=== PATIENT | female | born 1955 | race Caucasian/White ===

== ENCOUNTER → 2018-03-12 12:38 | Outpatient (CLI) | payer OTHER, SELFPAY ==
--- NOTE | 2018-03-12 13:01 | MM_ITS ---
MM Dig mamm DX unilat LT CAD COMPARISON: 09/11/2017 INDICATION: Follow-up breast cancer ORDERING PHYSICIAN: Amrik Montilla MD PATIENT AGE: 62 years TECHNIQUE: Standard images performed along with problem-solving views FINDINGS: Postsurgical changes are present along the radial aspect of the left breast with increased density in the surgical bed with surgical clips in that region. There are other scattered surgical clips in the breast as well in the upper outer aspect and 2 within the central aspect. The asymmetric density medially is not significant change compared to 09/11/2017 consistent with postsurgical changes. The density does efface out on what on the MLO view compared to the cc view with some interspersed fat within the area and also somewhat disperses out on the rolled views. No other abnormalities are evident. IMPRESSION: Postsurgical changes left breast. Asymmetric density in the medial aspect is felt to represent surgical scar BI-RADS Category: 2 Benign Finding(s) RECOMMENDED FOLLOW-UP: 6M - 6 MONTH FOLLOW-UP Recommend 6 month follow-up of both breasts to put patient back on schedule (A letter has been sent to the patient regarding results of the study.)
== END ==
PROVIDERS: Family Provider Family Medicine; PCP Family Medicine; Visit Provider Surgery
DX: C50.919 Malignant neoplasm of unspecified site of unspecified female breast (principal)
CPT/HCPCS: 77065

== ENCOUNTER → 2018-09-04 08:28 | Outpatient (CLI) | payer BC, SELFPAY ==
--- NOTE | 2018-09-04 08:30 | MM_ITS ---
MM Dig screening mamm BI w/CAD ORDERING PHYSICIAN : Amrik Montilla MD PATIENT AGE: 63 years GENDER: Female COMPARISON: No August 2017 bilateral mammogram along with subsequent February 2018. MR breast from April 2016 is also available in the PACS from outside study There is also a: Sepsis study [facility] mobile from 02/04/2015 INDICATION: ITS.REASON: screening. No hormones. No new complaints. Left lumpectomy 2016 with chemotherapy & radiation. TECHNIQUE: Standard CC and MLO images were obtained. R2 CAD reviewed. FINDINGS: RIGHT BREAST. No significant new findings follow-up in one year on right. Lower density breast with generalized fatty replacement Small grouping of calcifications upper-outer quadrant right breast is unchanged since 2017. Benign appearance and include benign skin calcifications as well as others small benign-appearing punctate calcifications.-These can be be followed. :Scant glandular tissue towards the upper outer quadrant is similar to studies dating back to 2014 LEFT BREAST:Postlumpectomy changes again see that the medial left breast. No new findings here. Numerous vascular clips are seen here. Along with clips at the left axilla from axillary dissection. . The diffuse skin thickening from previous radiation again evident but has shown slight regression since February Also note 3 other percutaneous biopsy metallic markers.: One at the superior medial breast which likely reflected a MR directed mammogram As does the second and third metallic marker clips seen at the central left breast IMPRESSION: ...... 1. No significant new findings either breast. Follow-up in one year recommended 2. Left breast Post lumpectomy changes with axillary dissection.. . Otherwise note 3 additional metallic markers from 3 prior percutaneous biopsy elsewhere on left left breast. 3. Right breast. No significant new findings.. Stable benign-appearing calcifications 4.Follow-up not over one year recommended bilateral BI-RADS Category: 2 Benign Finding(s) RECOMMENDED FOLLOW-UP: 1YR 1 YEAR FOLLOW-UP (A letter has been sent to the patient regarding results of the study.)
== END ==
PROVIDERS: PCP Family Medicine; Visit Provider Surgery
DX: Z12.31 Encounter for screening mammogram for malignant neoplasm of breast (principal)
CPT/HCPCS: 77067

== ENCOUNTER → 2019-09-06 08:27 | Outpatient (CLI) | payer BC, SELFPAY ==
--- NOTE | 2019-09-06 08:30 | MM_ITS ---
PROCEDURE: MM DIG SCREENING MAMM BI W/CAD CLINICAL INDICATION: breast cancer screening There is a history of previous lumpectomy left breast for malignancy with follow-up radiation therapy and chemotherapy. . COMPARISON: DMDB DIG MAMM-DX LEA W/CAD from 09/11/2017 DXLT MM Dig mamm DX unilat LT CAD from 03/12/2018 [facility] MM Dig screening mamm BI w/CAD from 09/04/2018 TECHNIQUE: Standard CC and MLO images were obtained. R2 CAD reviewed. FINDINGS: Scattered diffuse fibroglandular densities are seen throughout both breasts. There is minimal postlumpectomy scarring with adjacent surgical clips upper inner quadrant left breast. There is mild generalized skin thickening left breast likely secondary to radiation therapy. There additional biopsy clips in the central portion of the breast not related to the lumpectomy site. There is scattered benign-appearing microcalcifications in each breast. There is no new or suspicious lesion in either breast and no suspicious microcalcifications. IMPRESSION: Fibrofatty parenchyma with postlumpectomy and post radiation changes left breast BI-RAD Category: 2 Benign Finding(s) FOLLOW-UP: 1YR 1 Year Follow-up (A letter has been sent to the patient regarding results of the study.) Dictated by: Dr. Jose Posada MD 09/08/2019 15:[address] Jose Posada MD in [place] 09/08/2019 15:30
== END ==
PROVIDERS: PCP Family Medicine; Visit Provider Surgery
DX: Z12.31 Encounter for screening mammogram for malignant neoplasm of breast (principal)
CPT/HCPCS: 77067

== ENCOUNTER → 2020-03-21 08:13 | Outpatient (CLI) | payer BC, SELFPAY ==
[2020-03-21 11:19] LABS: Alanine Aminotransferase 26 U/L (12-78); Albumin Level 4.2 g/dl (3.5-5.0); Albumin/Globulin Ratio 1.4 (1.1-1.8); Alkaline Phosphatase 133 U/L (38-126); Aspartate Amino Transferase 31 U/L (14-36); Bilirubin,Total 0.6 mg/dl (0.2-1.3); Blood Urea Nitrogen 22 mg/dl (7-17); Calcium 9.7 mg/dl (8.4-10.2); Carbon Dioxide 32 mmol/L (22.0-30.0); Chloride 101 mmol/L (98-107); Chol/HDL Ratio 3.9 (1-3.5); Cholesterol 170 mg/dl (140-200); Estimated Glomerular Filt Rate 101 ml/min (>60); GFR (African American) 122 ML/MIN (>60); Glucose 116 mg/dl (74-100); HDL Cholesterol 44 mg/dl (40-60); Sodium 137 mmol/L (136-145); Total Protein,Serum 7.2 g/dl (6.3-8.2); Triglycerides 142 mg/dl (30-150); VLDL Cholesterol 28 mg/dL (0-40)
[2020-03-21 11:30] LABS: Direct LDL Cholesterol 118.37 mg/dL (100-129)
[2020-03-21 11:51] LABS: Thyroid Stimulating Hormone 1.08 uIU/mL (0.465-4.68)
== END ==
PROVIDERS: Visit Provider Physician Assistant
DX: I10 Essential (primary) hypertension (principal); Z13.29 Encounter for screening for other suspected endocrine disorder; Z13.220 Encounter for screening for lipoid disorders
CPT/HCPCS: 36415; 80053; 80061; 84443

== ENCOUNTER → 2020-09-11 08:24 | Outpatient (CLI) | payer BC, SELFPAY ==
--- NOTE | 2020-09-11 08:27 | MM_ITS ---
PROCEDURE: MM DIG SCREENING MAMM BI W/CAD Referring Doctor: Anna Pennington Patient Age:65Y CLINICAL INDICATION: SCREENING Lumpectomy upper inner quadrant left breast, with radiation. Other previous stereotactic biopsies elsewhere as well. No hormones, no new complaints. Noncontributory family history COMPARISON: MG DMNLL DIG MAMM-NEEDLE LOC-LT from 07/27/2016 MG DMDB DIG MAMM-DX LEA W/CAD from 09/11/2017 MG DXLT MM Dig mamm DX unilat LT CAD from 03/12/2018 MG [facility] MM Dig screening mamm BI w/CAD from 09/04/2018 MG MM DIG SCREENING MAMM BI W/CAD from 09/06/2019 TECHNIQUE: Standard CC and MLO images were obtained. R2 CAD reviewed. Bilateral digital breast tomosynthesis included. Additional nipple profile MLO view right breast included FINDINGS: Minimal residual fibroglandular elements bilateral, with overall lower density breast. Moderate fatty replacement throughout. No new dominant or suspicious mass Left breast: No new areas of concern Stable appearance to the prior lumpectomy deep medial left breast. Mild diffuse skin thickening noted the from previous radiation-stable A few additional metallic clips and markers elsewhere in the breast from previous percutaneous biopsies appear unchanged the. . Some small groupings of tiny dense punctate calcifications a seen left breast appear stable and can be followed. . Right breast: No new areas significant concern No mass lesion. Stable architecture . Small scattered round calcifications with some loose groupings of a few small dense punctate calcifications a seen upper-outer quadrant right--no significant change since previous studies and can be followed.. Many of these are likely skin calcifications a . Bilateral follow-up 1 year recommended IMPRESSION: No new areas of concern either breast stable observations bilaterally Recommended Bilateral follow-up 1 year Left breast lumpectomy site deep medial left breast again noted and appears stable .. BI-RAD Category: 2 Benign Finding(s) FOLLOW-UP: 1YR 1 Year Follow-up (A letter has been sent to the patient regarding results of the study.) Dictated by: Elan Maldonado MD 09/17/2020 12:43 Elan Maldonado MD in [place] 09/17/2020 12:43
== END ==
PROVIDERS: PCP Family Medicine; Visit Provider Physician Assistant
DX: Z12.31 Encounter for screening mammogram for malignant neoplasm of breast (principal)
CPT/HCPCS: 77063; 77067

== ENCOUNTER → 2021-09-17 08:01 | Outpatient (CLI) | payer BC, MEDICARE, SELFPAY ==
--- NOTE | 2021-09-17 08:05 | MM_ITS ---
PROCEDURE INFORMATION: Exam: MG Bilateral Screening 3D Mammography Exam date and time: 09/17/2021 8:05 AM Age: 66 years old Clinical indication: Encounter for screening mammogram for malignant neoplasm of breast. Personal history of left breast cancer TECHNIQUE: Imaging protocol: Bilateral screening tomosynthesis and 2D mammography including computer-aided detection (CAD) when performed. COMPARISON: 1. MG MM DIG SCREENING MAMM BI W/CAD 09/11/2020 8:30 AM 2. MG MM DIG SCREENING MAMM BI W/CAD 09/06/2019 8:40 AM FINDINGS: MAMMOGRAPHY: Breast composition: The breast tissue is composed of scattered areas of fibroglandular density. Mass: None. Architectural distortion: Stable post operative architectural distortion in the left inner quadrant due to prior lumpectomy for carcinoma. Calcifications: No suspicious calcifications. Asymmetric density: None. Skin thickening: Mild diffuse skin thickening on left due to radiation change Axillary adenopathy: None. IMPRESSION: No mammographic evidence of malignancy. Annual screening is recommended unless otherwise clinically indicated. ASSESSMENT: BI-RADS Category 2: Benign
== END ==
PROVIDERS: PCP Family Medicine; Visit Provider Physician Assistant
DX: Z12.31 Encounter for screening mammogram for malignant neoplasm of breast (principal)
CPT/HCPCS: 77063; 77067

== ENCOUNTER → 2022-09-23 08:14 | Outpatient (CLI) | payer BC, SELFPAY ==
--- NOTE | 2022-09-23 08:28 | MM_ITS ---
PROCEDURE INFORMATION: Exam: MG Bilateral Screening 3D Mammography Exam date and time: 09/23/2022 8:19 AM Age: 67 years old Clinical indication: Screening. Personal history of left breast cancer, status post left lumpectomy and radiation. TECHNIQUE: Imaging protocol: Bilateral Screening tomosynthesis and 2D mammography including computer-aided detection (CAD) when performed. COMPARISON: 1. MG MM DIG SCREENING MAMM BI W/CAD 09/17/2021 8:09 AM 2. MG MM DIG SCREENING MAMM BI W/CAD 09/11/2020 8:30 AM 3. MG MM DIG SCREENING MAMM BI W/CAD 09/06/2019 8:40 AM 4. MG [facility] MM Dig screening mamm BI w/CAD 09/04/2018 8:50 AM FINDINGS: MAMMOGRAPHY: Breast composition: There are scattered areas of fibroglandular density. Mass: None. Architectural distortion: The stable postoperative architectural distortion in the left upper inner quadrant with surgical clips. Calcifications: No suspicious calcifications. Asymmetric density: None. Skin thickening: Stable mild left skin thickening. Axillary adenopathy: None. Surgical clips in the left axilla. Other: Left biopsy clips. IMPRESSION: No mammographic evidence of malignancy. Annual screening is recommended unless otherwise clinically indicated. ASSESSMENT: BI-RADS Category 2: Benign
== END ==
PROVIDERS: PCP Family Medicine; Visit Provider Physician Assistant
DX: Z12.31 Encounter for screening mammogram for malignant neoplasm of breast (principal)
CPT/HCPCS: 77063; 77067

== ENCOUNTER → 2023-02-03 12:36 | Outpatient (CLI) | payer BC, SELFPAY | PROVIDERS: PCP Family Medicine; Visit Provider Physician Assistant | DX: R01.1 Cardiac murmur, unspecified (principal) | CPT/HCPCS: 93306 ==

== ENCOUNTER → 2023-08-25 09:58 | Outpatient (CLI) | payer MEDICARE, SELFPAY ==
--- NOTE | 2023-08-25 10:10 | XR_ITS ---
FINAL REPORT CLINICAL HISTORY: FALL in April 2023 radiates down right leg FINDINGS: Right hip Three views were obtained. There is no acute fracture or dislocation. There are mild degenerative changes. No soft tissue abnormality is identified. IMPRESSION: No acute process. Reviewed, Interpreted and Dictated by Amrik Harkins III, MD Transcribed by Mayela Harmon Authenticated and [facility]
== END ==
PROVIDERS: PCP Physician Assistant; Visit Provider Physician Assistant
DX: M25.551 Pain in right hip (principal)
CPT/HCPCS: 73502

== ENCOUNTER → 2023-09-25 07:46 | Outpatient (CLI) | payer MEDICARE, SELFPAY ==
--- NOTE | 2023-09-25 07:49 | MM_ITS ---
PROCEDURE INFORMATION: Exam: MG Bilateral Screening 3D Mammography Exam date and time: 09/25/2023 7:44 AM Age: 68 years old Clinical indication: Screening. Personal history of left breast cancer, status post left lumpectomy and radiation. TECHNIQUE: Imaging protocol: Bilateral Screening tomosynthesis and 2D mammography including computer-aided detection (CAD) when performed. COMPARISON: 1. MG MM DIG SCREENING MAMM BI W/CAD 09/23/2022 8:19 AM 2. MG MM DIG SCREENING MAMM BI W/CAD 09/17/2021 8:09 AM 3. MG MM DIG SCREENING MAMM BI W/CAD 09/11/2020 8:30 AM 4. MG MM DIG SCREENING MAMM BI W/CAD 09/06/2019 8:40 AM FINDINGS: MAMMOGRAPHY: Breast composition: There are scattered areas of fibroglandular density. Mass: None. Architectural distortion: Stable postoperative architectural distortion in the left upper inner quadrant with surgical clips. Calcifications: No suspicious calcifications. Asymmetric density: None. Skin thickening: Stable mild left skin thickening. Axillary adenopathy: None. IMPRESSION: No mammographic evidence of malignancy. Annual screening is recommended unless otherwise clinically indicated. ASSESSMENT: BI-RADS Category 2: Benign
== END ==
PROVIDERS: PCP Physician Assistant; Visit Provider Physician Assistant
DX: Z12.31 Encounter for screening mammogram for malignant neoplasm of breast (principal)
CPT/HCPCS: 77063; 77067

== ENCOUNTER 2024-09-27 08:09 | Outpatient (CLI) | payer MEDICARE, SELFPAY ==
--- NOTE | 2024-09-27 08:19 | XR_ITS ---
FINAL REPORT TECHNIQUE: Bone densitometry calculations of the lumbar spine and left hip were obtained. CLINICAL HISTORY: SCREENING COMPARISON: None FINDINGS: Using L1-4, the bone mineral density of the spine is 1.129 g/cm2, corresponding to T-score of 0.7 and a Z score of 2.7. This is within the range of normal limits. Using the left hip, the bone mineral density of the total hip is 0.702 g/cm2, corresponding to a T-score of -2.0 and a Z-score of -0.6. This is within the range of osteopenia. Using the right hip, the bone mineral density of the femoral neck is 0.716 g/cm2, corresponding to a T-score of -1.2 and a Z-score of 0.5. This is within the range of osteopenia. FRAX 10 year fracture risk is 0.7% for a hip fracture and 7.8% for a major osteoporotic fracture. NOTE: T-score: Standard deviation compared with peak bone mass of young adult mean. *Following the recommendations of the International Society of Bone densitometry, classification of hip BMD is based on the lower of two T-scores; total hip or femoral neck. IMPRESSION: 1. Bone mineral density of the lumbar spine within the range of normal limits. 2. Bone mineral density of the bilateral hips within the range of osteopenia. Reviewed, Interpreted and Dictated by Yulisa Parnell MD Transcribed by Yaneli Alexander Authenticated and [facility]
--- NOTE | 2024-09-27 08:19 | MM_ITS ---
PROCEDURE INFORMATION: Exam: MG Bilateral Screening 3D Mammography Exam date and time: 09/27/2024 8:17 AM Age: 69 years old Clinical indication: Screening. Personal history left breast cancer, status post lumpectomy and radiation in 2016. TECHNIQUE: Imaging protocol: Bilateral Screening tomosynthesis and 2D mammography including computer-aided detection (CAD) when performed. COMPARISON: 1. MG MM DIG SCREENING MAMM BI W/CAD 09/25/2023 7:44 AM 2. MG MM DIG SCREENING MAMM BI W/CAD 09/23/2022 8:19 AM 3. MG MM DIG SCREENING MAMM BI W/CAD 09/17/2021 8:09 AM 4. MG MM DIG SCREENING MAMM BI W/CAD 09/11/2020 8:30 AM FINDINGS: MAMMOGRAPHY: Breast composition: There are scattered areas of fibroglandular density. Mass: None. Architectural distortion: Stable left lumpectomy architectural distortion and surgical clips. Calcifications: No suspicious calcifications. Asymmetric density: None. Skin thickening: Stable left skin thickening. Axillary adenopathy: None. Surgical clips in the left axilla. IMPRESSION: No mammographic evidence of malignancy. Annual screening is recommended unless otherwise clinically indicated. ASSESSMENT: BI-RADS Category 2: Benign.
== END 2024-09-27 23:59 | disposition home or self-care (01) ==
LOC: RAD 08:13
PROVIDERS: PCP Physician Assistant; Visit Provider Physician Assistant
DX: Z12.31 Encounter for screening mammogram for malignant neoplasm of breast (principal); Z13.820 Encounter for screening for osteoporosis
CPT/HCPCS: 77063; 77067; 77080

== ENCOUNTER 2025-10-13 07:53 | Outpatient (CLI) | payer MEDICARE, SELFPAY ==
--- OUTSIDE RECORDS SUMMARY | 2025-01-30 04:45 | XMS_ITS ---
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 Name Role Phone Ho Thao Primary Care Provider [phone] Anna Pennington Unavailable [phone] Allergies Allergen (clinical drug ingredient) Drug/Non Drug Allergy documented on EMR Reaction Allergy Type Onset Date Status EPINEPHrine Unknown Drug Allergy Activ e acetaminophen / hydrocodone HYDROcodone-Acetamino phen Unknown Drug Allergy Active furosemide Lasix Unknown Drug Allergy Active Results Component Value Reference Range Notes CBC Venipuncture (in house) Reviewed date:01/30/2025 03:15:36 PM Interpretation: Performing Lab: Notes/Report: wbc 7.4 3.5 - 10 lymph 33.2 15 - 50 mid 5.9 2 - 15 gran 60.9 35 - 80 rbc 4.94 3.5 - 5.5 hgb 14.4 11.5 - 16.5 hct 42.4q 35 - 55 mcv 85.8 75 - 100 mch 29.2 25 - 35 mchc 34.0 31 - 38 platlet 241 100 - 400 Cologuard Reviewed date:03/14/2025 09:24:40 AM Interpretation:Negative Performing Lab: Notes/Report: Negative Cologuard Reviewed date:03/14/2025 09:24:40 AM Interpretation:Negative Performing Lab: Notes/Report: Negative Cologuard Reviewed date:03/14/2025 09:24:40 AM Interpretation:Negative Performing Lab: Notes/Report: Negative P-Comprehensive Metabolic Pa rocio (CMP) Reviewed date:02/06/2025 02:27:30 PM Interpretation:Glu 144, Alk Phos 127 Performing Lab: Notes/Report: CLIA: [id number] Rolando Mao MD, Poker Machine Attendant [address] [place] [address] , [place] [address] Test performed by [facility] Sodium 141 135-145 mmol/L Potassium 4.0 3.5-5.3 mmol/L Chloride 102 97-108 mmol/L CO2 29 22-32 mmol/L Glucose 144 65-99 mg/dL BUN 21 8-23 mg/dL Creatinine 0.88 0.50-1.00 mg/dL Calcium 9.4 8.6-10.4 mg/dL eGFR by Creatinine 71 >59 mL/min/1.73m2 Protein 6.9 6.0-8.3 g/dL Albumin 4.3 3.5-5.3 g/dL Alkaline Phosphatase 127 35-121 IU/L ALT (SGPT) 25 <5-47 IU/L AST (SGOT) 21 <5-40 IU/L Bilirubin, Total 0.5 <0.2-1.2 mg/dL A/G Ratio 1.7 1.1-2.5 P-Hemoglobin A1C Reviewed date:02/06/2025 02:27:30 PM Interpretation:7.4 Performing Lab: Notes/Report: Test performed by [facility] [address] [place] [address] [place] [address] Rolando Mao MD, Poker Machine Attendant CLIA: [id number] Hemoglobin A1C 7.4 <5.7 % The following HbA1c ranges recommended by the [place] Diabetes Association (ADA) may be used as an aid in the diagnosis of diabetes mellitus. HbA1c Suggested Diagnosis >=6.5% Diabetic 5.7% - 6.4% Pre-Diabetic <5.7% Non-Diabetic P-Lipid Panel Reviewed date:02/06/2025 02:27:30 PM Interpretation:Trigs 157, HDL 36, Chol/HDL 5.08, non-HDL 147 Performing Lab: Notes/Report: Test performed by [facility] [address] [place] [address] [place] [address] Rolando Mao MD, Poker Machine Attendant CLIA: [id number] Cholesterol 183 <200 mg/dL Triglycerides 157 <150 mg/dL HDL Cholesterol 36 >39 mg/dL Cholesterol / HDL Ratio 5.08 0.00-4.44 Ratio Non-HDL Cholesterol 147 <130 mg/dL LDL Cholesterol (Calculation) 116 <130 mg/dL LDL Cholesterol Levels* Less than 100 mg/dL Optimal 100 to 129 mg/dL Near Optimal/ Above Optimal 130 to 159 mg/dL Borderline High 160 to 189 mg/dL High 190 mg/dL and above Very High * Categories as recommended by the 2004 ATPIII guidelines LDL/HDL Ratio 3.2 <3.3 Ratio LDL Cholesterol Patient History Test Date: 12/20/2023 LDL Results: 111 Units: mg/dL % Change: - Test Date: 04/11/2024 LDL Results: 100 Units: mg/dL % Change: -9% Test Date: 01/30/2025 LDL Results: 116 Units: mg/dL % Change: +16% P-TSH reflex to FT4 Reviewed date:02/06/2025 02:27:30 PM Interpretation:Normal Performing Lab: Notes/Report: Test performed by [facility] [address] [place] [address] , [place] [address] Rolando Mao MD, Poker Machine Attendant CLIA: [id number] TSH reflex to FT4 1.61 0.43-5.25 mU/L Estimated Average Glucose Reviewed date:02/06/2025 02:27:30 PM Interpretation:Normal Performing Lab: Notes/Report: Test performed by [facility] [address] [place] [address] , [place] [address] Rolando Mao MD, Poker Machine Attendant CLIA: [id number] Estimated Average Glucose (eAG) 166 Estimated Average Glucose (eAG) is calculated using the equation eAG = (28.7 x HbA1c) - 46.7 based on the guidelines established by the ADA. If the patient has certain diseases including kidney disease, sickle cell anemia, thalassemia, or is taking medications such as dapsone, erythropoietin, or iron, eAG should not be evaluated. REASON FOR VISIT ckup w/ refills and Annual Wellness Visit Medications Medication SIG (Take, Route, Frequency, Duration) Notes Start Date End Date Status Vitamin E 1000 UNIT 1 cap(s) orally once a day Not-Taking Ciclopirox 8 % 1 joy applied topically once a day at night 02/02/2023 Not-Taking Medrol 4 MG as directed orally daily; Duration: 6 days 12/20/2023 Not-Taking Meloxicam 15 MG take 1 tablet by mouth once daily Orally once daily; Duration: 90 days Active Triamterene-HCTZ 37.5-25 MG 1 tab orally daily; Duration: 90 days Pt Needs Appt Active Methocarbamol 750 MG 1 tablet Orally three times a day as needed 12/20/2023 Not-Taking Glucosamine Chondroitin MSM DIRECTED *Please review and pick correct strength-formulat ion from [employer] options. If intended option is not shown, discontinue and re-order from Quick Search* Active ZyrTEC Allergy 10 MG 1 tab(s) orally once a day Active Calcium-Vitamin D 600 MG-800 INTL UNITS 1 TAB(S) ORALLY 2 TIMES A DAY *Please review and pick correct strength-formulat ion from [employer] options. If intended option is not shown, discontinue and re-order from Quick Search* Active Metoprolol Succinate ER 25 MG take 1 tablet by mouth once daily Orally Once a day; Duration: 90 days Active Cyclobenzaprine HCl 10 MG 1 tab(s) orally three times a day as needed 04/08/2015 Not-Taking Letrozole 2.5 MG 1 tab(s) orally once a day; Duration: 30 day(s) Not-Taking Immunizations Vaccine Route Administration Date Status Comme nts Prevnar (PCV20) IM Intramuscular 01/30/2025 Administered Problems Problem Type SNOMED Code ICD Code Onset Dates Problem Status W/U Status Risk Notes Problem Personal history of primary malignant neoplasm of breast (280589098) History of invasive ductal carcinoma of breast (Z85.3) Active confirmed Problem Obese class II (0591892781591 05) BMI 39.0-39.9,adul t (Z68.39) Active confirmed Vital Signs Blood pressure systolic 152 mm Hg 01/31/20 25 Blood pressure diastolic 92 mm Hg 025 Heart Rate 92 /min 01/30/2025 Height 66 in 01/30/2025 Weight 245.6 lbs 01/30/2025 BMI 39.64 kg/m2 01/30/2025 Encounters Encounter [facility] Date [facility] [address] [facility] [address] [id number] 01/30/2025 Anna Pennington Adult general medica l examination Z00.00 ; Essential hypertension I10 ; Impaired fasting glucose R73.01 ; Mixed hyperlipidemia E78.2 ; Arthritis M19.90 ; Colon cancer screening Z12.11 ; History of invasive ductal carcinoma of breast Z85.3 ; Lymphedema I89.0 ; Osteopenia of right hip M85.851 ; Osteopenia of left hip M85.852 and BMI 39.0-39.9,adult Z68.39 Assessments Encounter Date Diagnosis (ICD Code) Assessment Notes Treatment Notes Treatment Clinical Notes Section Notes 01/30/2025 Adult general medical examination (ICD-10 - Z00.00) Patient instructed to return to office Annually for Annual Wellness Visits to include annual screenings of Pain assessment, Functional Ability assessment, Cognitive Ability assessment, Fall Risk assessment, Depression screening and Bladder control screening. 01/30/2025 Essential hypertension (ICD-10 - I10) BP is much better. Will continue current medication. 01/30/2025 Impaired fasting glucose (ICD-10 - R73.01) 01/30/2025 Mixed hyperlipidemia (ICD-10 - E78.2) 01/30/2025 Arthritis (ICD-10 - M19.90) 01/30/2025 Colon cancer screening (ICD-10 - Z12.11) 01/30/2025 History of invasive ductal carcinoma of breast (ICD-10 - Z85.3) 01/30/2025 Lymphedema (ICD-10 - I89.0) 01/30/2025 Osteopenia of right hip (ICD-10 - M85.851) 01/30/2025 Osteopenia of left hip (ICD-10 - M85.852) 01/30/2025 BMI 39.0-39.9,adult (ICD-10 - Z68.39) Plan Of Treatment Medication Medication Name Sig Start Date Stop Date Notes Meloxicam 15 MG take 1 tablet by once daily Orally once daily; Duration: 90 days Triamterene-HCTZ 37.5-25 MG 1 tab orally daily; Duration: 90 days Pt Needs Appt Metoprolol Succinate ER 25 MG take 1 tablet by mouth once daily Orally Once a day; Duration: 90 days Treatment Notes Assessment Notes Adult general medical examination Patien t instructed to return to office Annually for Annual Wellness Visits to include annual screenings of Pain assessment, Functional Ability assessment, Cognitive Ability assessment, Fall Risk assessment, Depression screening and Bladder control screening. Essential hypertension BP is much better . Will continue current medication. Next Appt Details Follow Up: As directed by MD , Reason: Progress Notes * Nolan BOBOB:1955 (70 yo F)Acc No.[id number]:01/30/2025 Annual Wellness Visit Patient: Ap SAYRARaudelKaila Provider: CRISTINA Barlow :1955 A ge:69 Y S ex:Female Date:01/30/2025 Address: [id number] Pcp:Ho Thao Subjective: * Chief Complaints: * 1 . ckup w/ refills and Annual Wellness Visit. * HPI: H PI: Patient is here today for a check up with refills , a Medicare Annual Wellness Visit. Pt sts she is fasting. * ROS: O PTHALMOLOGY: Negative for d enies issues with vision. * Medical History: A llergies, Cancer of left breast, Mocerna covid pfizer vaccine. 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 * Hospitalization/Major Diagno stic Procedure: s ee above . * Family History: F ather: alive 93 yrs. M other: alive. 2 brother(s) , 1 sister(s) . 1 son(s) , 1 daughter(s) . . * Social History: C URRENT TOBACCO USE S moking Status: Patient does NOT smoke. C affeine: no. Home smoke detector use: yes. Marital Status: . Past smoking status: no. Alcohol: No. Sexually active: yes. * Medications: T aking Calcium-Vitamin D 600 MG-800 INTL UNITS TABLET 1 TAB(S) ORALLY 2 TIMES A DAY , Notes to Pharmacist: *Please review and pick correct strength-formulation from [employer] options. If intended option is not shown, discontinue and re-order from Quick Search*, Taking Glucosamine Chondroitin MSM DIRECTED , Notes to Pharmacist: *Please review and pick correct strength-formulation from [employer] options. If intended option is not shown, discontinue and re-order from Quick Search*, Taking ZyrTEC Allergy 10 MG Tablet 1 tab(s) orally once a day , Taking Meloxicam 15 MG Tablet Take 1 tablet by mouth once daily , Taking Metoprolol Succinate ER 25 MG Tablet Extended Release 24 Hour Take 1 tablet by mouth once daily , Taking Triamterene-HCTZ 37.5-25 MG Tablet 1 tab orally daily , Notes to Pharmacist: Pt Needs Appt, Not-Taking Methocarbamol 750 MG Tablet 1 tablet Orally three times a day as needed , Not-Taking Medrol 4 MG Tablet Therapy Pack as directed orally daily , Not-Taking Vitamin E 1000 UNIT Capsule 1 cap(s) orally once a day , Not-Taking Ciclopirox 8 % Solution 1 joy applied topically once a day at night , Not-Taking Cyclobenzaprine HCl 10 MG Tablet 1 tab(s) orally three times a day as needed , Not-Taking Letrozole 2.5 MG Tablet 1 tab(s) orally once a day , Medication List reviewed and reconciled with the patient * Allergies: E PINEPHrine, HYDROcodone-Acetaminophen, Lasix. Objective: * Vitals: W t: 245.6, Temp: 97.9, BP: 152/92, HR: 92, Nurse: joni, Ht: 66, Repeat BP:128/88, BMI:39.64. * Examination: G eneral Examination: General Appearance: N AD. H EENT: u nremarkable.?Oral cavity: n o lesions, mucosa moist and WNL, no erythema. N inedr: s upple, no lymphadenopathy. C hest: n ormal shape and expansion. H eart: R SR. L ungs: c lear to auscultation. A bdomen: bowel sounds present, soft and nontender, no organomegaly or masses, no guarding or rigidity. N eurologic Exam: I ntact, gait normal. S kin: n ormal, no rash. P eripheral pulses: n ormal (2+) bilaterally. E xtremities: n o leg edema. * Physical Examination: G ENERAL: Pain Assessment: P ain level: 2, on a scale of 0 to 10 (10 being extreme pain). F unctional Status Assessment: P atient response to how often physical health interferes with daily activities: almost never Able to perform ADLs-including meal preparation, grocery shopping, housework, laundry, taking medications, or handling finances. Cognitive Status: Alert and oriented. Ambulation Status: Fully ambulatory. F all Risk Assessment: I ndependant in ambulation, adequate lighting in home. Patient has fallen or had trouble walking within the past 12 months. D epression Screening: D enies depressed mood or anxiety. Describes emotional health as: calm/peaceful. B ladder Control Screening: D enies problems. Assessment: * Assessment: 1. A dult general medical examination - Z00.00 (Primary) 2 . E ssential hypertension - I10 3 . I mpaired fasting glucose - R73.01 4 . M ixed hyperlipidemia - E78.2 5 . A rthritis - M19.90 6 . C olon cancer screening - Z12.11 7 . H istory of invasive ductal carcinoma of breast - Z85.3 8 . L ymphedema - I89.0 9 . O steopenia of right hip - M85.851 1 0. O steopenia of left hip - M85.852 1 1. B OK 39.0-39.9,adult - Z68.39 Plan: * Treatment: 2. E ssential hypertension Refill Metoprolol Succinate ER Tablet Extended Release 24 Hour, 25 MG, take 1 tablet by mouth once daily, Orally, Once a day, 90 days, 90 Tablet, Refills 3; R efill Triamterene-HCTZ Tablet, 37.5-25 MG, 1 tab, orally, daily, 90 days, 90 Tablet, Refills 3, Notes to Pharmacist: Pt Needs Appt. L AB: P-Comprehensive Metabolic Panel (CMP) (Collection Date & Time - 01/30/2025 09:26 AM) G quinton 144, Alk Phos 127 Value Reference Range A /G Ratio 1.7 1.1-2.5 - * A lbumin 4.3 3.5-5.3 - g/dL * A lkaline Phosphatase 127 H 35-121 - IU/L * A LT (SGPT) 25 <5-47 - IU/L * A ST (SGOT) 21 <5-40 - IU/L * B ilirubin, Total 0.5 <0.2-1.2 - mg/dL * B UN 21 8-23 - mg/dL * C alcium 9.4 8.6-10.4 - mg/dL * C hloride 102 97-108 - mmol/L * C O2 29 22-32 - mmol/L * C reatinine 0.88 0.50-1.00 - mg/dL * G lucose 144 H 65-99 - mg/dL * P otassium 4.0 3.5-5.3 - mmol/L * S odium 141 135-145 - mmol/L * P rotein 6.9 6.0-8.3 - g/dL * e GFR by Creatinine 71 >59 - mL/min/1.73m2 * Gretta Engle 02/06/2025 02: 27:13 PM > see phone encounter ?LAB: P-TSH reflex to FT4 (Collection Date & Time - 01/30/2025 09:26 AM)? Normal* Value Reference Range T SH reflex to FT4 1.61 0.43-5.25 - mU/L * Gretta Engle 02/06/2025 02: 27:13 PM > see phone encounter ?LAB: CBC Venipuncture (in house) (Collection Date & Time - 01/30/2025)* Value Reference Range w bc 7.4 3.5 - 10 * l ymph 33.2 15 - 50 * m id 5.9 2 - 15 * g ran 60.9 35 - 80 * r bc 4.94 3.5 - 5.5 * h gb 14.4 11.5 - 16.5 * h ct 42.4q 35 - 55 * m cv 85.8 75 - 100 * m ch 29.2 25 - 35 * m chc 34.0 31 - 38 * p latlet 241 100 - 400 * Bambi Burnette 01/30/2025 10:42 :01 AM > Notes: BP is much better. Will continue current medication.??3.?Impaired fasting glucose?LAB: P-Hemoglobin A1C (Collection Date & Time - 01/30/2025 09:26 AM)?7.4* Value Reference Range H emoglobin A1C 7.4 H <5.7 - % * Gretta Engle 02/06/2025 02: 27:13 PM > see phone encounter 4.?Mixed hyperlipidemia?LAB: P-Lipid Panel (Collection Date & Time - 01/30/2025 09:26 AM)?Trigs 157, HDL 36, Chol/HDL 5.08, non-HDL 147* Value Reference Range C holesterol / HDL Ratio 5.08 H 0.00-4.44 - Ratio * C holesterol 183 <200 - mg/dL * H DL Cholesterol 36 L >39 - mg/dL * L DL Cholesterol (Calculation) 116 <130 - mg/d L * L DL/HDL Ratio 3.2 <3.3 - Ratio * N on-HDL Cholesterol 147 H <130 - mg/dL * T riglycerides 157 H <150 - mg/dL * Gretta Engle 02/06/2025 02: 27:13 PM > see phone encounter 5.?Arthritis? Refill Meloxicam Tablet, 15 MG, take 1 tablet by mouth once daily, Orally, once daily, 90 days, 90 Tablet, Refills 3.??6.?Colon cancer screening?LAB: Cologuard (Collection Date & Time - 02/13/2025)?Negative* Gretta Engle 02/03/2025 04:2 6:49 PM > order ottoxGretta Tineo 02/25/2025 04:05:40 PM > needs to be recollected.Gretta Engle 03/14/2025 09:15:20 AM > pt recollected, test is negative. pt informed of results. * Immunizations: Prevnar (PCV20) : 0.5 mL (Route: Intramuscular) given by JONI Smith on Right Deltoid (Adult general medical examination) * Labs: * L ab: Estimated Average Glucose (Collection Date & Time - 01/30/2025 09:26 AM) N ormal Value Reference Range E stimated Average Glucose 166 - mg/dL * [facility], IT support 01/31/2025 06:55:06 : This order was created by the Interface. Gretta Engle 02/06/2025 02:27:13 PM > see phone encounter * Procedure Codes: G 0438 ANNUAL WELLNES VST; PERSNL PPS INIT, G2211 Complex e/m visit add on, G0444 ANNUAL DEPRESSION SCREENING 15 MIN, 1090F PRES/ABSN URINE INCON ASSESS, 3288F FALL RISK ASSESSMENT DOCD, 1170F FXNL STATUS ASSESSED, 1159F MED LIST DOCD IN RCRD, 1003F LEVEL OF ACTIVITY ASSESS, 1036F TOBACCO NON-USER, 06706 CBC WITH AUTO DIFF, 1125F AMNT PAIN NOTED PAIN PRSNT, G8510 NEG SCR Depression PT NOT ELIG F/U/PLN DOC, 3051F HG A1C>EQUAL 7.0%<8.0%, 4040F PNEUMOC IMM ORDER/ADMIN, 3074F SYST BP LT 130 MM HG, 3079F DIAST BP 80-89 MM HG * Preventive Medicine: Counseling: E motional health: E ncouraged to try connecting with family or friends to boost mood. B ladder control: D iscussed ways to control/manage leakage of urine. Exercise: A dvised to start, increase or maintain level of exercise/physical activity. I njury prevention: D iscussed fall prevention. Discussed need for cane/walker. Potential trip hazards discussed. Immunizations: T etanus u p to date. P neumococcal r ecommended. I nfluenza r ecommended seasonally. Screening / Special Tests: M ammogram R ecent history: 09/27/2024, negative.?Colonoscopy R ecent history:, 2022 Cologuard order , recommended. B one mineral Density R ecent history: 09/27/2024, osteopenia hips. * Follow Up: A s directed by * Images: Billing Information: * Visit Code: 76522 Office Visit, Est Pt., Level 3. Modifiers: 25 * Procedure Codes: G0438 ANNUAL WELLNES VST; PERSNL PPS INIT. G2211 Complex e/m visit add on. G0444 ANNUAL DEPRESSION SCREENING 15 MIN. 1090F PRES/ABSN URINE INCON ASSESS. 3288F FALL RISK ASSESSMENT DOCD. 1170F FXNL STATUS ASSESSED. 1159F MED LIST DOCD IN RCRD. 1003F LEVEL OF ACTIVITY ASSESS. 1036F TOBACCO NON-USER. 05286 CBC WITH AUTO DIFF. 1125F AMNT PAIN NOTED PAIN PRSNT. G8510 NEG SCR Depression PT NOT ELIG F/U/PLN DOC. 3051F HG A1C>EQUAL 7.0%<8.0%. 4040F PNEUMOC IMM ORDER/ADMIN. 3074F SYST BP LT 130 MM HG. 3079F DIAST BP 80-89 MM HG. * Electronic signature of CRISTINA Dailey on 10/13/2025 at 07:55 AM EST Sign off status: Pending * Provider: CRISTINA Barlow Date: 0 01/30/2025 Generated for Printi ng/Faanastaciag/eTransmitting on: 1 12/14/2024 07:55 AM EST History and Physical Notes * HPI (History of Present Illness) Category Sub-Category Detail Notes Category Not es HPI Patient is here today for a [facility] k up with refills , a Medicare Annual Wellness Visit. Pt sts she is fasting Physical Examination Category Sub-Category Detail Notes Section Note s GENERAL Pain Assessment: Pain level: 2, on a scale of 0 to 10 (10 being extreme pain) Functional Status Assessment: Patient response to how often physical health interferes with daily activities: almost never Able to perform ADLs-including meal preparation, grocery shopping, housework, laundry, taking medications, or handling finances. Cognitive Status: Alert and oriented. Ambulation Status: Fully ambulatory Fall Risk Assessment: Independant in amb ulation, adequate lighting in home. Patient has fallen or had trouble walking within the past 12 months Depression Screening: Denies depressed m ood or anxiety. Describes emotional health as: calm/peaceful Bladder Control Screening: Denies proble ms Examination Category Sub-Category Detail Notes Category Not es General Examination HEENT: unremarkable Heart: RSR Lungs: clear to auscultatio n Abdomen: bowel sounds present , soft and nontender, no organomegaly or masses, no guarding or rigidity Extremities: no leg edema General Appearance: NAD Skin: normal, no rash Neurologic Exam: Intact, gait normal Neck: supple, no lymphaden opathy Oral cavity: no lesions, mucosa m oist and WNL, no erythema Peripheral pulses: normal (2+) bilatera lly Chest: normal shape and exp ansion
--- OUTSIDE RECORDS SUMMARY | 2025-05-08 04:00 | XMS_ITS ---
Author Organization [facility] Address [address] [facility] [address] [place] [id number] Care Team Providers Care Plant Pathology Teacher Name Role Phone Ho Thao Primary Care Provider [phone] Anna Pennington Unavailable [phone] Allergies Allergen (clinical drug ingredient) Drug/Non Drug Allergy documented on EMR Reaction Allergy Type Onset Date Status EPINEPHrine Unknown Drug Allergy Activ e acetaminophen / hydrocodone HYDROcodone-Acetamino phen Unknown Drug Allergy Active furosemide Lasix Unknown Drug Allergy Active Results Component Value Reference Range Notes CBC Venipuncture (in house) Reviewed date:05/16/2025 11:17:16 AM Interpretation:Normal Performing Lab: Notes/Report: Normal wbc 7.9 3.5 - 10 lymph 30.2 15 - 50 mid 6.5 2 - 15 gran 63.3 35 - 80 rbc 4.94 3.5 - 5.5 hgb 14.6 11.5 - 16.5 hct 42.6 35 - 55 mcv 86.3 75 - 100 mch 29.6 25 - 35 mchc 34.3 31 - 38 platlet 257 100 - 400 Glycohemoglobin A1c (in hous e) Reviewed date:05/16/2025 11:17:16 AM Interpretation:6.5 Performing Lab: Notes/Report: 6.5 glycohemoglobin 6.5% 5 - 6.5 % P-Comprehensive Metabolic Pa rocio (CMP) Reviewed date:05/16/2025 11:17:16 AM Interpretation:glu 113 Performing Lab: Notes/Report: Test performed by [facility] [address] [place] [address] , [place] [address] Rolando Mao MD, Chair Caner CLIA: [id number] Sodium 141 135-145 mmol/L Potassium 4.0 3.5-5.3 mmol/L Chloride 101 97-108 mmol/L CO2 26 20-32 mmol/L Glucose 113 65-99 mg/dL BUN 22 8-23 mg/dL Creatinine 0.87 0.50-1.00 mg/dL Calcium 9.9 8.6-10.4 mg/dL eGFR by Creatinine 72 >59 mL/min/1.73m2 Protein 7.2 6.0-8.3 g/dL Albumin 4.5 3.5-5.3 g/dL Alkaline Phosphatase 120 35-121 IU/L ALT (SGPT) 33 <5-47 IU/L AST (SGOT) 29 <5-40 IU/L Bilirubin, Total 0.7 <0.2-1.2 mg/dL A/G Ratio 1.7 1.1-2.5 P-CPK Reviewed date:05/16/2025 11:17:16 AM Interpretation:Normal Performing Lab: Notes/Report: Test performed by [facility] [address] [place] [address] , [place] [address] Rolando Mao MD, Chair Caner CLIA: [id number] Creatine Kinase 117 20-180 U/L P-Lipid Panel Reviewed date:05/16/2025 11:17:16 AM Interpretation:Chol 200, Trigs 202, HDL 36, Chol/HDL 5.56, Non-HDL 164, LDL/HDL 3.4 Performing Lab: Notes/Report: Test performed by [facility] [address] [place] [address] , [facility] [place] [id number] Rolando Mao MD, Chair Caner CLIA: [id number] Cholesterol 200 <200 mg/dL Triglycerides 202 <150 mg/dL HDL Cholesterol 36 >39 mg/dL Cholesterol / HDL Ratio 5.56 0.00-4.44 Ratio Non-HDL Cholesterol 164 <130 mg/dL LDL Cholesterol (Calculation) 124 <130 mg/dL LDL Cholesterol Levels* Less than 100 mg/dL Optimal 100 to 129 mg/dL Near Optimal/ Above Optimal 130 to 159 mg/dL Borderline High 160 to 189 mg/dL High 190 mg/dL and above Very High * Categories as recommended by the 2004 ATPIII guidelines LDL/HDL Ratio 3.4 <3.3 Ratio LDL Cholesterol Patient History Test Date: 04/11/2024 LDL Results: 100 Units: mg/dL % Change: -9% Test Date: 01/30/2025 LDL Results: 116 Units: mg/dL % Change: +16% Test Date: 05/08/2025 LDL Results: 124 Units: mg/dL % Change: +6% P-Magnesium Reviewed date:05/16/2025 11:17:16 AM Interpretation:1.7 Performing Lab: Notes/Report: Test performed by [facility] [address] [facility] , [address], [place] [address] Rolando Mao MD, Chair Caner CLIA: [id number] Magnesium 1.7 1.6-2.4 mg/dL REASON FOR VISIT Check Up w/ Labs Medications Medication SIG (Take, Route, Frequency, Duration) Notes Start Date End Date Status Vitamin E 1000 UNIT 1 cap(s) orally once a day Not-Taking Ciclopirox 8 % 1 joy applied topically once a day at night 02/02/2023 Not-Taking Methocarbamol 750 MG 1 tablet Orally three times a day as needed 12/20/2023 Not-Taking Medrol 4 MG as directed orally daily; Duration: 6 days 12/20/2023 Not-Taking Meloxicam 15 MG take 1 tablet by mouth once daily Orally once daily; Duration: 90 days Active ZyrTEC Allergy 10 MG 1 tab(s) orally once a day Active metFORMIN HCl ER 500 MG 1 tablet with evening meal Orally Two times a day; Duration: 30 day(s) 02/07/2025 Active Glucosamine Chondroitin MSM DIRECTED *Please review and pick correct strength-formulat ion from tibdit options. If intended option is not shown, discontinue and re-order from Quick Search* Active Metoprolol Succinate ER 25 MG take 1 tablet by mouth once daily Orally Once a day; Duration: 90 days Active Triamterene-HCTZ 37.5-25 MG 1 tab orally daily; Duration: 90 days Pt Needs Appt Active Calcium-Vitamin D 600 MG-800 INTL UNITS 1 TAB(S) ORALLY 2 TIMES A DAY *Please review and pick correct strength-formulat ion from tibdit options. If intended option is not shown, discontinue and re-order from Quick Search* Active Cyclobenzaprine HCl 10 MG 1 tab(s) orally three times a day as needed 04/08/2015 Not-Taking Letrozole 2.5 MG 1 tab(s) orally once a day; Duration: 30 day(s) Not-Taking Methocarbamol 750 MG 1 tablet Orally every night, prn 05/08/2025 Active Problems Problem Type SNOMED Code ICD Code Onset Dates Problem Status W/U Status Risk Notes Problem Morbid obesity (173477275) Severe obesity (BMI 35.0-39.9) with comorbidity (E66.01) Active confirmed Problem Obese class II ([id number] 4105) BMI 38.0-38.9,adult (Z68.38) Active confirmed Vital Signs Blood pressure systolic 142 mm Hg 05/08/20 25 Blood pressure diastolic 80 mm Hg 025 Heart Rate 69 /min 05/08/2025 Height 66 in 05/08/2025 Weight 240.6 lbs 05/08/2025 BMI 38.83 kg/m2 05/08/2025 Encounters Encounter Location Date Provider Diagnosis [facility] [address] [facility] [address] [place], [place] [id number] 05/08/2025 Anna Aditi Essential hypertensi on I10 ; Mixed hyperlipidemia E78.2 ; Arthritis M19.90 ; History of invasive ductal carcinoma of breast Z85.3 ; Spasm of back muscles M62.830 ; Diabetes type 2, controlled E11.9 ; Severe obesity (BMI 35.0-39.9) with comorbidity E66.01 ; Piriformis syndrome of right side G57.01 ; Ductal carcinoma C80.1 ; Hyperlipidemia, unspecified E78.5 and BMI 38.0-38.9,adult Z68.38 Assessments Encounter Date Diagnosis (ICD Code) Assessment Notes Treatment Notes Treatment Clinical Notes Section Notes 05/08/2025 Essential hypertension (ICD-10 - I10) 05/08/2025 Mixed hyperlipidemia (ICD-10 - E78.2) 05/08/2025 Arthritis (ICD-10 - M19.90) 05/08/2025 History of invasive ductal carcinoma of breast (ICD-10 - Z85.3) 05/08/2025 Spasm of back muscles (ICD-10 - M62.830) 05/08/2025 Diabetes type 2, controlled (ICD-10 - E11.9) 05/08/2025 Severe obesity (BMI 35.0-39.9) with comorbidity (ICD-10 - E66.01) 05/08/2025 Piriformis syndrome of right side (ICD-10 - G57.01) Gave exercises to do at home. 05/08/2025 Ductal carcinoma (ICD-10 - C80.1) 05/08/2025 Hyperlipidemia, unspecified (ICD-10 - E78.5) 05/08/2025 BMI 38.0-38.9,adult (ICD-10 - Z68.38) Plan Of Treatment Medication Medication Name Sig Start Date Stop Date Notes metFORMIN HCl ER 500 MG 1 tablet with ev ening meal Orally Two times a day; Duration: 30 day(s) 02/07/2025 Methocarbamol 750 MG 1 tablet Orally every night, prn 04/29 Treatment Notes Assessment Notes Piriformis syndrome of right side Gave e xercises to do at home. Next Appt Details Follow Up: via phone to repo rt test results, Reason: Progress Notes * Delmy BOBeDOB:1955 (70 yo F)Acc No.[id number]:05/08/2025 Progress Notes Patient: Kaila DALAL Provider: CRISTINA Barlow :1955 A ge:69 Y S ex:Female Date:05/08/2025 Address:[place] [address], [facility] [id number] Pcp:Ho Thao Subjective: * Chief Complaints: * 1 . Check Up w/ Labs. * HPI: C ardiology: 69 year old female presents with c/o Hyperlipidemia P t here for a check up. Pt is fasting today. M id Back: c/o Middle Back Pain P t is having back pain when she moves. Pt states it's been going on for a little bit now. Pt states that she went to a chiropracter but it did not help. * ROS: D ERMATOLOGY: no R marcell. n o H zeus. G ASTROENTEROLOGY: no N ausea. n o V omiting. n o D iarrhea.? U ROLOGY: no D ifficulty urinating. n o B lood in urine. * Medical History: A llergies, Cancer of [...] *Please review and pick correct strength-formulation from tibdit options. If intended option is not shown, discontinue and re-order from Quick Search*, Taking Glucosamine Chondroitin MSM DIRECTED , Notes to Pharmacist: *Please review and pick correct strength-formulation from tibdit options. If intended option is not shown, discontinue and re-order from Quick Search*, Taking ZyrTEC Allergy 10 MG Tablet 1 tab(s) orally once a day , Taking Metoprolol Succinate ER 25 MG Tablet Extended Release 24 Hour take 1 tablet by mouth once daily Orally Once a day , Taking Triamterene-HCTZ 37.5-25 MG Tablet 1 tab orally daily , Notes to Pharmacist: Pt Needs Appt, Taking Meloxicam 15 MG Tablet take 1 tablet by mouth once daily Orally once daily , Taking metFORMIN HCl ER 500 MG Tablet Extended Release 24 Hour 1 tablet with evening meal Orally Two times a day , Not-Taking Methocarbamol 750 MG Tablet 1 tablet [...] HYDROcodone-Acetaminophen, Lasix. Objective: * Vitals: W t: 240.6, Temp: 000, BP: 142/80, HR: 69, Nurse: pe, Ht: 66, BMI:38.83. * Examination: G eneral Examination: General Appearance: N AD. H EENT: u nremarkable.?Oral cavity: n o lesions, mucosa moist and WNL, no erythema. N inder: s upple, no lymphadenopathy. C hest: n ormal shape and expansion. H eart: R SR. L ungs: c lear to auscultation. A bdomen: b owel sounds present, soft and nontender, no organomegaly or masses, no guarding or rigidity. N eurologic Exam: I ntact, gait normal. S kin: n ormal, no rash. P eripheral pulses: n ormal (2+) bilaterally. B ack: t tp along the right piriformis muscle and along the thoracic paraspinal muscles, pain with figure 4 test on the right. E xtremities: n o leg edema. Assessment: * Assessment: 1. E ssential hypertension - I10 (Primary) 2 . M ixed hyperlipidemia - E78.2 3 . A rthritis - M19.90 4 . H istory of invasive ductal carcinoma of breast - Z85.3 5 . S pasm of back muscles - M62.830 6 . D iabetes type 2, controlled - E11.9 7 . S evere obesity (BMI 35.0-39.9) with comorbidity - E66.01 8 . P iriformis syndrome of right side - G57.01 ? 9 . D uctal carcinoma - C80.1 S pecify :left, moderately differentiated 1 0. H yperlipidemia, unspecified - E78.5 1 1. B NV 38.0-38.9,adult - Z68.38 Plan: * Treatment: Value Reference Range A /G Ratio 1.7 1.1-2.5 - * A lbumin 4.5 3.5-5.3 - g/dL * A lkaline Phosphatase 120 35-121 - IU/L * A LT (SGPT) 33 <5-47 - IU/L * A ST (SGOT) 29 <5-40 - IU/L * B ilirubin, Total 0.7 <0.2-1.2 - mg/dL * B UN 22 8-23 - mg/dL * C alcium 9.9 8.6-10.4 - mg/dL * C hloride 101 97-108 - mmol/L * C O2 26 20-32 - mmol/L * C reatinine 0.87 0.50-1.00 - mg/dL * G lucose 113 H 65-99 - mg/dL * P otassium 4.0 3.5-5.3 - mmol/L * S odium 141 135-145 - mmol/L * P rotein 7.2 6.0-8.3 - g/dL * e GFR by Creatinine 72 >59 - mL/min/1.73m2 * Anna Pennington 05/08/2025 0 9:55:09 AM EDT >room 10, Gretta Ryder 05/16/2025 11:17:07 AM EDT > See phone encounter 2.?Mixed hyperlipidemia?LAB: P-Lipid Panel (Collection Date & Time - 05/08/2025 08:57 AM)?Chol 200, Trigs 202, HDL 36, Chol/HDL 5.56, Non-HDL 164, LDL/HDL 3.4* Value Reference Range C holesterol / HDL Ratio 5.56 H 0.00-4.44 - Ratio * C holesterol 200 H <200 - mg/dL * H DL Cholesterol 36 L >39 - mg/dL * L DL Cholesterol (Calculation) 124 <130 - mg/d L * L DL/HDL Ratio 3.4 H <3.3 - Ratio * N on-HDL Cholesterol 164 H <130 - mg/dL * T riglycerides 202 H <150 - mg/dL * Anna Pennington 05/08/2025 0 9:55:09 AM EDT >room 10, Gretta Ryder 05/16/2025 11:17:07 AM EDT > See phone encounter 3.?Spasm of back muscles? Start Methocarbamol Tablet, 750 MG, 1 tablet, Orally, every night, prn, 30, Refills 2.?LAB: P-CPK (Collection Date & Time - 05/08/2025 08:57 AM)?Normal* Value Reference Range C reatine Kinase 117 20-180 - U/L * Anna Pennington 05/08/2025 0 9:55:09 AM EDT >room 10, Gretta Ryder 05/16/2025 11:17:07 AM EDT > See phone encounter ?LAB: P-Magnesium (Collection Date & Time - 05/08/2025 08:57 AM)?1.7* Value Reference Range M agnesium 1.7 1.6-2.4 - mg/dL * Anna Pennington 05/08/2025 0 9:55:09 AM EDT >room 10, purple Gretta Engle 05/16/2025 11:17:07 AM EDT > See phone encounter ?LAB: CBC Venipuncture (in house) (Collection Date & Time - 05/08/2025)? Normal* Value Reference Range w bc 7.9 3.5 - 10 * l ymph 30.2 15 - 50 * m id 6.5 2 - 15 * g ran 63.3 35 - 80 * r bc 4.94 3.5 - 5.5 * h gb 14.6 11.5 - 16.5 * h ct 42.6 35 - 55 * m cv 86.3 75 - 100 * m ch 29.6 25 - 35 * m chc 34.3 31 - 38 * p latlet 257 100 - 400 * Elaine Rojas 05/08/2025 1 1:23:45 AM EDT > Gretta Engle 05/16/2025 11:17:07 AM EDT > See phone encounter 4.?Diabetes type 2, controlled?LAB: Glycohemoglobin A1c (in house) (Collection Date & Time - 05/08/2025)? 6.5* Value Reference Range g lycohemoglobin 6.5% 5 - 6.5 % * Elaine Rojas 05/08/2025 1 1:20:23 AM EDT > Gretta Engle 05/16/2025 11:17:07 AM EDT > See phone encounter 5.?Piriformis syndrome of right side? Notes: Gave exercises to do at home.??6.?Others? Refill metFORMIN HCl ER Tablet Extended Release 24 Hour, 500 MG, 1 tablet with evening meal, Orally, Two times a day, 30 day(s), 60 Tablet, Refills 2.?? * Procedure Codes: G 2211 Complex e/[place], [address] GLYCATED HEMOGLOBIN TEST, Modifiers: QW , 010[address] CBC WITH AUTO DIFF, 3044F HG A1C LEVEL LT 7.0%, 1036F TOBACCO NON-USER, G8950 PREHTN/HTN BP DOC INDCD F/U DOC, G8753 MOST RECENT SYSTOLIC BP >= 140MM HG, G8754 MOST RECENT DIASTOLIC BP < 90MM HG * Follow Up: v ia phone to report test results * Images: Billing Information: * Visit Code: 07041 Office Visit, Est Pt., Level 4. * Procedure Codes: G2211 Complex e/[place]. [address] GLYCATED HEMOGLOBIN TEST. Modifiers: QW 97044 CBC WITH AUTO DIFF. 3044F HG A1C LEVEL LT 7.0%. 1036F TOBACCO NON-USER. G8950 PREHTN/HTN BP DOC INDCD F/U DOC. G8753 MOST RECENT SYSTOLIC BP >= 140MM HG. G8754 MOST RECENT DIASTOLIC BP < 90MM HG. * Electronic signature of CRISTINA Dailey on 10/13/2025 at 07:56 AM EST Sign off status: Pending * Provider: CRISTINA Barlow Date: 0 05/08/2025 Generated for Laura ng/Faxing/eTransmitting on: 1 12/14/2024 07:56 AM EST History and Physical Notes * HPI (History of Present Illness) Category Sub-Category Detail Notes Category Not es Cardiology Hyperlipidemia Pt here for a ch inder up. Pt is fasting today Mid Back Middle Back Pain Pt is having ba ck pain when she moves. Pt states it's been going on for a little bit now. Pt states that she went to a chiropracter but it did not help Examination Category Sub-Category Detail Notes Category Not [...] erythema Peripheral pulses: normal (2+) bilatera lly Back: ttp along the right piriformis muscle and along the thoracic paraspinal muscles, pain with figure 4 test on the right Chest: normal shape and exp ansion
--- OUTSIDE RECORDS SUMMARY | 2025-10-13 07:56 | XMS_ITS | Clinical Summary ---
Author Organization Healthcare Address [address] [place] [address] Care Team Providers Care Turkey Egg Gatherer Name Role Phone Genaro Thao MD Primary Care Provider [phone] Allergies Active Allergy Reactions Criticality Noted Date Comments Acetaminophen Other - please document in the comment field Low 03/08/2019 Epinephrine Unknown - Patient states they do not know rxn details Low 08/24/2016 headache Furosemide Rash Low 02/06/2017 Hydrocodone Other - please document in the comment field Low 03/08/2019 Hydrocodone-Acetaminophe n Other - please document in the comment field Low 08/24/2016 hot flashes, dizzy Medications calcium carbonate-vitami n D 600-400 MG-UNIT tablet 1 tab(s) orally 2 times a day Active Glucosamine-Gregorio droitin 500-400 MG capsule 3 cap(s) orally once a day 04/27/2017 Active Multiple Vitamins-Mineral s (Centrum Silver 50+Women) tablet 1 tab(s) orally once a day Active triamterene-hydr ochlorothiazide (Maxzide-25) 37.5-25 MG tablet TAKE 1 TABLET BY MOUTH ONCE DAILY FOR 90 DAYS 04/10/2021 Active alpha tocopherol (Vitamin E) 400 units capsule 450 Units. Activ e cetirizine (ZyrTEC) 10 MG tablet 1 tab(s) orally once a day Active metoprolol succinate XL (Toprol-XL) 25 MG 24 hr tablet Take 1 tablet (25 mg) by mouth 1 (one) time each day. 08/28/2024 Active Active Problems Problem Noted Date Diagnosed Date Lymphedema of upper extremity 11/15/2016 Overview (04/25/2021): Lymphedema, not elsewhere classified Primary malignant neoplasm o f upper outer quadrant of left breast 09/12/2016 Cancer Staging:Pathologic stage from 07/27/2016:Stage IIA(T1c, N1a, cM0) - Signed by Monica Mendoza MD on 04/25/2021 Overview (04/25/2021): Malignant neoplasm of upper-outer quadrant of left female breast Social History Tobacco Use Types Packs/Day Years Used Date Smoking Tobacco: Never Smokeless Tobacco: Never Alcohol Use Standard Drinks/Week Comments Not Currently 0 (1 standard drink = 0.6 oz pur e alcohol) PHQ-2 Answer Date Recorded Patient Health Questionnaire-2 Score 0 10/14/2024 PHQ-9 Answer Date Recorded Patient Health Questionnaire-9 Score 0 10/14/2024 Comments No Sex and Gender Information Value Date Recorded Sex Assigned at Not on file Legal Sex Female 6:05 PM EDT Gender Identity Not on file Sexual Orientation Not on file Last Filed Vital Signs Vital Sign Reading Time Taken Comments Blood Pressure 147/85 10/14/2024 9:41 AM EST Pulse 72 10/14/2024 9:41 AM EST Temperature 36.8 C (98.2 F) 10/14/2024 9:41 AM EST Respiratory Rate 10 10/03/2022 1:27 PM EST Oxygen Saturation 95% 10/14/2024 9:41 AM EST Inhaled Oxygen Concentration - - Weight 115 kg (254 lb 6.6 oz) 10/14/2024 9:41 AM EST Height 165.1 cm (5' 5 ) 10/14/2024 9:41 AM EST Body Mass Index 42.34 10/14/2024 9:41 AM EST Plan of Treatment Health Maintenance Due Date Last Done Comments [facility]-Hepatitis C Screening 1955 [facility]-Medicare Annual Wellness (AWV) 1955 [facility]-/Child/Adol SDOH Screenings 1955 [facility]-Obesity Intervention 1962 [facility]- SDOH Screenings 1974 [facility]-Adult SDOH Screenings 1974 [facility]-Pneumococcal Vaccine: 50 + Years (1 of 2 - PCV) 1975 [facility]-Zoster Vaccines (1 of 2) 1975 CT Colonography 2001 Colonoscopy 2001 FIT-DNA 2001 FIT 2001 FOBT 2001 Sigmoidoscopy 2001 [facility]-Colorectal Cancer Screening 2001 [facility]-RSV Vaccine: 60+ Years o r (1 - Risk 50-74 years 1-dose series) 2006 [facility]-Bone Density Scan 04/26/2023 04/26/2021 [facility]K-LLTEC-43 Vaccine ( season) 2025 09/14/2021, 02/10/2021, 01/13/2021 [facility]-Influenza Vaccine (#1) 06/30/202509/03, 09/12/2023 [facility]-Depression Screening 10/14/2025 024, 10/14/2024 [facility]-DTaP,Tdap,and Td Vaccine s (3 - Td or Tdap) 06/06/2029 06/06/2019, 01/16/2018 [facility]-Cervical Cancer Screening Discontinued [facility]-HPV/Cotest Discontinued 06/21/2016 [facility]-Pap Smear Discontinued 06/21/2016 [facility]-Hepatitis A Vaccines Aged Out 10/12/2018 No longer eligible based on patient's age to complete this topic HPV Vaccines (No Doses Required) Completed [facility]-HIB Vaccines Aged Out No longer e ligible based on patient's age to complete this topic [facility]-IPV Vaccines Aged Out No longer e ligible based on patient's age to complete this topic [facility]-Rotavirus Vaccines Aged Out No lo nger eligible based on patient's age to complete this topic Procedures Procedure Name Priority Date/Time Associated Diagnosis Comments DEXA BONE DENSITY Routine 04/26/2021 12: 44 PM EDT Malignant neoplasm of female breast, unspecified estrogen receptor status, unspecified laterality, unspecified site of breast (CMS/HCC) Aromatase inhibitor use CYTO DATA CONVERSION Routine 06/21/2016 12:00 AM EDT from Last 3 Months or Most Recently Relevant to Health Maintenance Results * Dexa Bone Density (04/26/2021 12:44 PM EDT) Anatomical Region Laterality Modality L-spine Radiographic Deepali ging Narrative 04/27/2021 10:04 AM EDT [facility] Nephrology, Bone & Mineral Metabolism [address] [place] [address] DXA Bone Densitometry Report: 04/26/2021 Subjective Dear Monica Carlos MD, your patient Kaila Bob completed a BMD test on 04/26/2021 using the [employer] iDXA DXA System (analysis version: 14.10) manufactured by [employer]. The following summarizes the results of our evaluation. Impression: Patient has osteopenia by WHO criteria. Based off FRAX risk assessment (10.3% for major osteoporotic fracture and 1.6% for hip fracture over the next 10 years) patient does not meet criteria for treatment. BMD is stable overall compared to 03/2019. Recommend follow-up DXA in 2 years. Procedure Note Master Cote, - 06/16/2021 [facility] Nephrology, Bone & Mineral Metabolism [address] [place] [address] DXA Bone Densitometry Report: 04/26/2021 Subjective Dear Monica Carlos MD, your patient Kaila Bob completed a BMD test on 04/26/2021 using the [employer] iDXA DXA System (analysis version: 14.10) manufactured by [employer]. The following summarizes the results of our evaluation. Impression: Patient has osteopenia by WHO criteria. Based off FRAX risk assessment (10.3% for major osteoporotic fracture and 1.6% for hip fracture over the next 10 years) patient does not meet criteria for treatment. BMD is stable overall compared to 03/2019. Recommend follow-up DXA in 2 years. us Monica Mendoza MD IMG DXA PROCEDURES Final Resu lt * Cytology (06/21/2016 12:00 AM EDT) Specimen from axilla structure obtained by fine needle aspiration biopsy (specimen) 06/21/2016 06/21/2016 3:4 3 PM EDT Narrative SUNQUEST - 06/22/2016 6:04 PM EDT [facility] MR #: [id number] [facility] [address] [place], [place] [address] 1955 (Age: 61) FW Collect Date: 06/21/2016 00:00 Receipt Date: 06/21/2016 15:43 Page 1 DEPARTMENT OF PATHOLOGY AND LABORATORY MEDICINE CYTOPATHOLOGY REPORT Email: [email or web address] ATTENDING MD/Practitioner: Shane Gaspar M.D. Service: A99 Location: [facility] MD(S): Munira Montilla M.D. Reported: 06/22/2016 18:04 Collected: 06/21/2016 00:00 DIAGNOSIS LEFT AXILLA, ULTRASOUND GUIDED FINE NEEDLE ASPIRATION (A): - ABUNDANT LYMPHOID TISSUE WITH NO EVIDENCE OF METASTATIC CARCINOMA. Electronically Signed Out Vicente Bae MD PROCEDURES/ADDENDA GROSS DESCRIPTION: 2mls clear needle rinse fluid (HOLD) CLINICAL INFORMATION: CLINICAL DIAGNOSIS Left breast IDC; Biopsy 04/27/2016 FNA performed by: Dr. Gaspar Number of sticks: 3 Immediate evaluation performed by: Dr. Bae/VK Evaluation episode #1: Abundant lymphoid tissue with lidocaine effect 2: Lymphoid tissue obscured by ultrasound gel 3: Abundant lymphoid tissue This service has been rendered in part by a resident. A pathologist has personally reviewed the slides/tissue and has rendered and is responsible for the diagnosis that appears on the report. SPECIMEN DESCRIPTION: A: FNA LEFT AXILLA, ULTRASOUND GUIDED DIFF-QUIK x 3, PAP STAIN x 3 ICD: R89.7 Abnormal histolog findings in specimens from oth org/tiss C50.912 Malignant neoplasm of unspecified site of left female breast F: A; 66729 ASP INTER, 84331, 91634(2), 23893 SNOMED CODES: A; O24967 Y50539 HZ4210 P1149 [id number] A resident has participated in this service. A pathologist has performed and is responsible for the reported pathologic evaluation. us Loretta Gaspar MD LAB PATHOLOGY ORDERABLES Final R esult SUNQUEST from Last 3 Months or Most Recently Relevant to Health Maintenance [place] [address] [facility] Care Teams Turkey Egg Gatherer Relationship Specialty Start Date End Date Genaro Thao MD [address] [place] [address] PCP - General 03/12/21
--- OUTSIDE RECORDS SUMMARY | 2025-10-13 07:57 | XMS_ITS | Clinical Summary ---
Author Organization [facility] Address [address] [place] [address], [address] [place] [address] Care Team Providers Care Home Care Giver Name Role Phone System, Referring Not In Primary Care Provider U navailable Social History Tobacco Use Types Packs/Day Years Used Date Smoking Tobacco: Never Assessed Comments Unknown Sex and Gender Information Value Date Recorded Sex Assigned at Not on file Legal Sex Female 7:34 AM EST Gender Identity Not on file Sexual Orientation Not on file Plan of Treatment Not on file Care Teams Home Care Giver Relationship Specialty Start Date End Date System, Referring Not In PCP - General 11/10/10
--- OUTSIDE RECORDS SUMMARY | 2025-10-13 07:57 | XMS_ITS | Encounter Summary ---
Author Organization Healthcare Address [address] [place] [address] Care Team Providers Care Anatomical Embalmer Name Role Phone Genaro Thao MD Primary Care Provider [phone] Encounter Details Date Type Department Care Team (Late st Contact Info) Description 03/26/2021 Orders Only [facility] Internal Medicine [address] [place] [address] [facility] Medicine, Physician, [address] [place] [address] Social History Tobacco Use Types Packs/Day Years Used Date Smoking Tobacco: Never Assessed Comments Unknown Sex and Gender Information Value Date Recorded Sex Assigned at Not on file Legal Sex Female 6:05 PM EDT Gender Identity Not on file Sexual Orientation Not on file documented as of this encounter Plan of Treatment Not on file documented as of this encounter Visit Diagnoses Not on filedocumented in this encounter Care Teams Anatomical Embalmer Relationship Specialty Start Date End Date Genaro Thao MD [address] [place] [address] PCP - General 03/12/21 documented as of this encounter
--- OUTSIDE RECORDS SUMMARY | 2025-10-13 07:57 | XMS_ITS | Patient Health Record ---
Author Organization [facility] Address [address] [facility] [address] [place] [id number] Care Team Providers Care Mold Maker Name Role Phone Ho Thao Primary Care Provider Anna Pennington Unavailable [phone] Allergies Allergen (clinical drug ingredient) Drug/Non Drug [...] 144, Alk Phos 127 Performing Lab: Notes/Report: Test performed by [facility] [address] [place] [address] [address], [place] [address] Rolando Mao MD, J[employer] Fi[employer] CLIA: [id number] Sodium 141 135-145 mmol/L Potassium 4.0 3.5-5.3 [...] Interpretation:7.4 Performing Lab: Notes/Report: Test performed by [facility] [address] [place] [address] [place] [address] Rolando Mao MD, [employer] Builder CLIA: [id number] Hemoglobin A1C 7.4 <5.7 % The following HbA1c ranges recommended by the [place] [employer] (ADA) may be used as an aid in the diagnosis of diabetes mellitus. HbA1c Suggested Diagnosis >=6.5% Diabetic 5.7% - 6.4% Pre-Diabetic <5.7% Non-Diabetic P-Lipid Panel Reviewed date:02/06/2025 02:27:30 PM Interpretation:Trigs 157, HDL 36, Chol/HDL 5.08, non-HDL 147 Performing Lab: Notes/Report: Test performed by [facility] [address] [place] [address] [address], [place] [address] Rolando Mao MD, J[employer] And Fi[employer] Builder CLIA: [id number] Cholesterol 183 <200 mg/dL Triglycerides 157 <150 [...] Interpretation:Normal Performing Lab: Notes/Report: Test performed by [facility] [address] [place] [address] , [place] [address] Rolando Mao MD, Jig And Fixture Builder CLIA: [id number] TSH reflex to FT4 1.61 0.43-5.25 mU/L Estimated Average Glucose Reviewed date:02/06/2025 02:27:30 PM Interpretation:Normal Performing Lab: Notes/Report: Test performed by [facility] [address] [place] [address] , [place] [address] Rolando Mao MD, Jig And Fixture Builder CLIA: [id number] Estimated Average Glucose (eAG) 166 Estimated Average Glucose (eAG) is calculated using the equation eAG = (28.7 x HbA1c) - 46.7 based on the guidelines established by the ADA. If the patient has certain diseases including kidney disease, sickle cell anemia, thalassemia, or is taking medications such as dapsone, erythropoietin, or iron, eAG should not be evaluated. CBC Venipuncture (in house) Reviewed date:05/16/2025 11:17:16 [...] 113 Performing Lab: Notes/Report: Test performed by [facility] [address] [place] [address] , [address], [place] [address] Rolando Mao MD, Jig And Fixture Builder CLIA: [id number] Sodium 141 135-145 mmol/L Potassium 4.0 3.5-5.3 [...] Interpretation:Normal Performing Lab: Notes/Report: Test performed by [facility] [address] [place] [address] , [address], [place] [id number] Rolando Mao MD, Jig And Fixture Builder CLIA: [id number] Creatine Kinase 117 20-180 U/L P-Lipid Panel Reviewed date:05/16/2025 11:17:16 AM Interpretation:Chol 200, Trigs 202, HDL 36, Chol/HDL 5.56, Non-HDL 164, LDL/HDL 3.4 Performing Lab: Notes/Report: Test performed by [facility] [address] [place] [address] , [place] [address] Rolando Mao MD, Jig And Fixture Builder CLIA: [id number] Cholesterol 200 <200 mg/dL Triglycerides 202 <150 [...] Interpretation:1.7 Performing Lab: Notes/Report: Test performed by [facility], [address] , [address], [place] [address] Rolando Mao MD, Jig And Fixture Builder CLIA: [id number] Magnesium 1.7 1.6-2.4 mg/dL Reason For Referral No Information Medications Medication SIG (Take, Route, Frequency, Duration) Notes Start Date End Date Status ZyrTEC Allergy 10 MG 1 tab(s) orally once a day Active Calcium-Vitamin D 600 MG-800 INTL UNITS 1 TAB(S) ORALLY 2 TIMES A DAY *Please review and pick correct strength-formulat ion from [employer] options. If intended option is not shown, discontinue and re-order from [employer] Search* Active Cyclobenzaprine HCl 10 MG 1 tab(s) orally three times a day as needed 04/08/2015 Not-Taking Glucosamine Chondroitin MSM DIRECTED *Please review and pick correct strength-formulat ion from [employer] options. If intended option is not shown, discontinue and re-order from [employer] Search* Active Letrozole 2.5 MG 1 tab(s) orally once a day; Duration: 30 day(s) Not-Taking Rosuvastatin Calcium 5 MG 1 tablet Orally Once a day; Duration: 30 days Active Vitamin E 1000 UNIT 1 cap(s) orally once a day Not-Taking Ciclopirox 8 % 1 joy applied topically once a day at night 02/02/2023 Not-Taking Methocarbamol 750 MG 1 tablet Orally three times a day as needed 12/20/2023 Not-Taking Medrol 4 MG as directed orally daily; Duration: 6 days 12/20/2023 Not-Taking metFORMIN HCl ER 500 MG 1 tablet orally twice a day; Duration: 30 days Active Methocarbamol 750 MG 1 tablet Orally every night, prn 05/08/2025 Active Meloxicam 15 MG take 1 tablet by mouth once daily Orally once daily; Duration: 90 days Active Metoprolol Succinate ER 25 MG take 1 tablet by mouth once daily Orally Once a day; Duration: 90 days Active Triamterene-HCTZ 37.5-25 MG 1 tab orally daily; Duration: 90 days Pt Needs Appt Active Immunizations Vaccine Route Administration Date Status Comme nts COVID 19 Moderna Unknown 02/10/2021 Administered COVID 19 Moderna Unknown 09/14/2021 Administered Hepatitis A (adult) Unknown 10/12/2018 Administered Prevnar (PCV20) IM Intramuscular 01/30/2025 Administered Tetanus Tdap-Adacel (over 7yrs) IM Intramuscular 01/16/2018 Administered Tetanus Tdap-Adacel (over 7yrs) Unknown 06/06/2019 Administered xFluzone High Dose-private (65yr&older) Unknown 09/03/2024 Administered Problems Problem Type SNOMED Code ICD Code Onset Dates Problem Status W/U Status Risk Notes Problem Essential hypertension (95692815) Essential hypertension (I10) Active confirmed Problem Arthritis (4995464) Arthritis (M19.90) Active confirmed Problem Lymphedema (64553880) Lymphedema (I89.0) Active confirmed Problem Mixed hyperlipidemia (098745251) Mixed hyperlipidemia (E78.2) Active confirmed Problem Hyperlipidemia (45209029) Hyperlipidemia, unspecified (E78.5) Active confirmed Problem Type II diabetes mellitus well controlled (774103170) Diabetes type 2, controlled (E11.9) Active confirmed Problem Obese class II (079431804336457) BMI 38.0-38.9,adult (Z68.38) Active confirmed Problem Ultrasonography of breast abnormal (33910673302578964 ) Abnormal ultrasound of breast (R92.8) Active confirmed Problem Sciatic nerve lesion (755399070) Piriformis syndrome, right (G57.01) Active confirmed Problem Obese class II (300036775397526) BMI 39.0-39.9,adult (Z68.39) Active confirmed Problem Ductal carcinoma (05835099) 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) Active confirmed Problem Lymphedema (440159549) Lymphedema of both arms (I89.0) Active confirmed Problem Bilateral carpal tunnel syndrome (21653118037036147 ) Bilateral carpal tunnel syndrome (G56.03) Active confirmed Problem Lymphedema (125270958) Lymphedema of left upper extremity (I89.0) Active confirmed Problem Osteopenia (disorder) (677770952) Osteopenia of right hip (M85.851) Active confirmed Problem Osteopenia of left hip (M85.852) Active confirmed Problem Morbid obesity (641873295) Severe obesity (BMI 35.0-39.9) with comorbidity (E66.01) Active confirmed Problem Personal history of primary malignant neoplasm of breast (820714520) History of invasive ductal carcinoma of breast (Z85.3) Active confirmed Problem Personal history of primary malignant neoplasm of breast (296625826) Personal history of breast cancer (Z85.3) Active confirmed Vital Signs Heart Rate 69 /min 05/08/2025 Blood pressure diastolic 80 mm Hg 05/08/2025 Height 66 in 05/08/2025 Blood pressure systolic 142 mm Hg 05/08/2025 Weight 240.6 lbs 05/08/2025 BMI 38.83 kg/m2 05/08/2025 Encounters Encounter Location Date Provider Diagnosis [facility] [address], [place] [id number] 01/30/2025 Anna Pennington Adult general medica l examination Z00.00 ; Essential hypertension I10 ; Impaired fasting glucose R73.01 ; Mixed hyperlipidemia E78.2 ; Arthritis M19.90 ; Colon cancer screening Z12.11 ; History of invasive ductal carcinoma of breast Z85.3 ; Lymphedema I89.0 ; Osteopenia of right hip M85.851 ; Osteopenia of left hip M85.852 and BMI 39.0-39.9,adult Z68.39 [facility] [address] [address] [facility] [address], [place] [id number] 05/08/2025 Anna Pennington Essential hypertensi on I10 ; Mixed hyperlipidemia E78.2 ; Arthritis M19.90 ; History of invasive ductal carcinoma of breast Z85.3 ; Spasm of back muscles M62.830 ; Diabetes type 2, controlled E11.9 ; Severe obesity (BMI 35.0-39.9) with comorbidity E66.01 ; Piriformis syndrome of right side G57.01 ; Ductal carcinoma C80.1 ; Hyperlipidemia, unspecified E78.5 and BMI 38.0-38.9,adult Z68.38 [facility] [address] [place], [place] [id number] 01/31/2025 [facility] [address] [facility] [address] [id number] 02/06/2025 [facility] [address] [place], [place] [id number] 05/08/2025 Ho Thao [facility] [address] [place], [place] [id number] 05/16/2025 Anna Pennington [facility] [address] [place], [place] [id number] 05/23/2025 Annamalik Pennington [facility] [address] [place], [place] [id number] 07/21/2025 Ho Thao [facility] [address] [place], [place] [id number] 08/13/2025 Ho Thao Assessments Encounter Date Diagnosis (ICD Code) Assessment Notes Treatment Notes Treatment Clinical Notes Section Notes 01/30/2025 Essential hypertension (ICD-10 - I10) BP is much better. Will continue current medication. 01/30/2025 Adult general medical examination (ICD-10 - Z00.00) Patient instructed to return to office Annually for Annual Wellness Visits to include annual screenings of Pain assessment, Functional Ability assessment, Cognitive Ability assessment, Fall Risk assessment, Depression screening and Bladder control screening. 05/08/2025 Essential hypertension (ICD-10 - I10) 05/08/2025 Mixed hyperlipidemia (ICD-10 - E78.2) 05/08/2025 Arthritis (ICD-10 - M19.90) 01/30/2025 Impaired fasting glucose (ICD-10 - R73.01) 01/30/2025 Mixed hyperlipidemia (ICD-10 - E78.2) 05/08/2025 History of invasive ductal carcinoma of breast (ICD-10 - Z85.3) 01/30/2025 Arthritis (ICD-10 - M19.90) 05/08/2025 Spasm of back muscles (ICD-10 - M62.830) 05/08/2025 Diabetes type 2, controlled (ICD-10 - E11.9) 01/30/2025 Colon cancer screening (ICD-10 - Z12.11) 05/08/2025 Severe obesity (BMI 35.0-39.9) with comorbidity (ICD-10 - E66.01) 01/30/2025 History of invasive ductal carcinoma of breast (ICD-10 - Z85.3) 01/30/2025 Lymphedema (ICD-10 - I89.0) 05/08/2025 Piriformis syndrome of right side (ICD-10 - G57.01) Gave exercises to do at home. 01/30/2025 Osteopenia of right hip (ICD-10 - M85.851) 05/08/2025 Ductal carcinoma (ICD-10 - C80.1) 01/30/2025 Osteopenia of left hip (ICD-10 - M85.852) 05/08/2025 Hyperlipidemia, unspecified (ICD-10 - E78.5) 05/08/2025 BMI 38.0-38.9,adult (ICD-10 - Z68.38) 01/30/2025 BMI 39.0-39.9,adult (ICD-10 - Z68.39) Plan Of Treatment Pending Test Test Name Order Date Mammogram 09/19/2025 Cologuard 01/19/2023 Insurance Providers Payer Name Payer Address Payer Phone Subscriber Number Group Number Insured Name Patient Relationship to Insured Coverage Start Date Coverage End Date MEDICARE PART B [address] [address] [place] [address] [id number] Kaila Child Self - patient is the insured [facility] [employer] [address] [place] [id number] Kaila Child Self - patient is the insured Medical (General) History Medical History History ICD Code allergies cancer of left breast mocerna covid pfizer vaccine Surgical History Surgery Date(Month/Year) hysterectomy, abdominal, still has ovari es 1991 tonsillectomy 1960 mastoid ( left ear), 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
--- NOTE | 2025-10-13 08:03 | MM_ITS ---
PROCEDURE INFORMATION: Exam: MG Bilateral Screening 3D Mammography Exam date and time: 10/13/2025 8:09 AM Age: 70 years old Clinical indication: Screening examination, personal history of left breast cancer and lumpectomy. TECHNIQUE: Imaging protocol: Bilateral Screening tomosynthesis and 2D mammography including computer-aided detection (CAD) when performed. COMPARISON: MG MM DIG SCREENING MAMM BI W/CAD 09/27/2024 8:17 AM FINDINGS: MAMMOGRAPHY: Breast composition: There are scattered areas of fibroglandular density. Mass: None. Architectural distortion: Normal postlumpectomy changes are seen on the left including post surgical distortion, benign-type calcifications, parenchymal density, and skin thickening Calcifications: No suspicious calcifications. Asymmetric density: None. Skin thickening: None. Axillary adenopathy: None. IMPRESSION: No mammographic evidence of malignancy. Annual screening is recommended unless otherwise clinically indicated. ASSESSMENT: BI-RADS Category 2: Benign.
== END 2025-10-13 23:59 | disposition home or self-care (01) ==
LOC: RAD 07:54
PROVIDERS: PCP Physician Assistant; Visit Provider Physician Assistant
DX: Z12.31 Encounter for screening mammogram for malignant neoplasm of breast (principal); R92.323 Mammographic fibroglandular density, bilateral breasts; Z85.3 Personal history of malignant neoplasm of breast; Z90.12 Acquired absence of left breast and nipple
CPT/HCPCS: 77063; 77067